=== PATIENT | female | born 1980 | race Caucasian/White ===

== ENCOUNTER → 2016-09-04 | Outpatient (CLI) | payer BC | LOC: BHSO 12:48 | DX: F41.1 Generalized anxiety disorder (principal) | CPT/HCPCS: 90791-AI ==

== ENCOUNTER → 2016-09-28 | Outpatient (CLI) | payer BC | LOC: BHSO 08:57 | DX: F41.1 Generalized anxiety disorder (principal) ==

== ENCOUNTER → 2016-12-02 | Outpatient (CLI) | payer BC | LOC: BHSO 08:15 | DX: F41.1 Generalized anxiety disorder (principal) ==

== ENCOUNTER → 2016-12-28 | Outpatient (CLI) | payer BC | LOC: BHSO 10:08 | DX: F41.1 Generalized anxiety disorder (principal) ==

== ENCOUNTER → 2017-02-10 | Outpatient (CLI) | payer BC | LOC: BHSO 11:37 | DX: F41.0 Panic disorder [episodic paroxysmal anxiety] (principal) ==

== ENCOUNTER → 2017-03-30 | Outpatient (CLI) | payer BC | LOC: BHSO 08:14 | DX: F41.1 Generalized anxiety disorder (principal) ==

== ENCOUNTER 2017-04-19 00:16 | Emergency (ER) | payer BC ==
[~2017-04-19] VITALS: Ht 170.2 cm; Wt 88.6 kg
[2017-04-19 00:16] VITALS: TEMP 97.5
[2017-04-19] MEDS ORDERED: SINGULAIR 110 MG/TAB PO (01:06)
[2017-04-19] MEDS ORDERED: ZOLOFT 100MG100 MG PO (01:08)
[2017-04-19] MEDS ORDERED: GLUCOPHAGE1000 MG PO (01:09)
[2017-04-19] MEDS ORDERED: XANAX .25M0.25 MG/TA PO (01:10)
[2017-04-19 01:12] LABS: COLLECTION METHOD CLEAN CATCH
[2017-04-19 01:12] LABS: BASO # 0.1 (0.0-0.2); BASO % 0.8 % (0.0-2.0); EOS # 0.3 (0.0-0.7); EOS % 2.3 % (0-4.0); GRAN # 7.8 (1.4-6.5); GRAN % 70.8 % (42.2-75.2); HEMATOCRIT 40.9 % (37.0-47.0); HEMOGLOBIN 13.8 g/dl (12.5-16.0); LYMPH # 2.2 (1.2-3.4); LYMPH % 19.7 % (20.0-51.0); MEAN CELL VOLUME 86 fl (80.0-100.0); MEAN CORPUSCULAR HEMOGLOBIN 29 pg (27.0-31.0); MEAN CORPUSCULAR HGB CONC 34 g/dl (33.0-37.0); MEAN PLATELET VOLUME 10.2 fl (7.4-10.4); MONO # 0.7 (0.1-0.6); MONO % 6.1 % (1.7-9.3); PLATELET COUNT 267 K/mm3 (130-400); RED BLOOD COUNT 4.76 M/mm3 (4.10-5.30)
[2017-04-19 01:19] LABS: PH 8 (5-8); SQUAMOUS EPITHELIAL 0-2 /hpf; URINE APPEARANCE Clear; URINE BACTERIA None Seen /hpf; URINE BILIRUBIN Negative (NEGATIVE); URINE BLOOD Negative (NEGATIVE); URINE COLOR Straw; URINE GLUCOSE Negative (NEGATIVE); URINE KETONE Negative (NEGATIVE); URINE LEUKOCYTE ESTERASE Negative (NEGATIVE); URINE PROTEIN(semi-quant) Negative (NEGATIVE); URINE RBC 0-2 /hpf; URINE UROBILINOGEN Negative (NEGATIVE); URINE WBC 0-2 /hpf
[2017-04-19 01:23] LABS: ADJUSTED CALCIUM 9.6 mg/dL (8.4-10.2); ALBUMIN 4.6 gm/dL (3.5-5.0); BILIRUBIN,TOTAL 0.5 mg/dL (0.0-1.0); CALCIUM 10.1 mg/dL (8.4-10.2); CREATININE, serum 0.6 mg/dL (0.52-1.25); POTASSIUM 3.8 mmol/L (3.4-5.0); TOTAL PROTEIN 7.2 gm/dL (6.4-8.2)
[2017-04-19 01:39] LABS: PROLACTIN 20.3 ng/mL (3.0-18.6)
[2017-04-19 01:52] VITALS: BP 120/75; PULSE 76
== END 2017-04-19 01:52 | disposition home or self-care (01) ==
LOC: COL.ER 00:16
PROVIDERS: Emergency Medicine
DX: R56.9 Unspecified convulsions (principal); Z79.84 Long term (current) use of oral hypoglycemic drugs
CPT/HCPCS: J7030

== ENCOUNTER → 2017-06-29 | Outpatient (CLI) | payer BC ==
[~2017-06-29] MED LIST: GLUCOPHAGE1000 MG PO; SINGULAIR 110 MG/TAB PO; XANAX .25M0.25 MG/TA PO; ZOLOFT 100MG100 MG PO
== END ==
LOC: BHSO 15:36
DX: F41.1 Generalized anxiety disorder (principal)
CPT/HCPCS: G0463

== ENCOUNTER → 2017-08-10 | Outpatient (CLI) | payer BC | LOC: BHSO 09:36 | DX: F41.1 Generalized anxiety disorder (principal) | CPT/HCPCS: G0463 ==

== ENCOUNTER 2017-09-18 09:29 | Emergency (ER) | payer BC ==
[2017-09-18 09:33] VITALS: TEMP 98.2
[2017-09-18] MEDS ORDERED: LAMICTAL150 MG PO (09:44)
[2017-09-18] MEDS ORDERED: NORCO 325 MG-51 TAB PO (11:47)
[2017-09-18 11:59] VITALS: BP 122/79; PULSE 78
== END 2017-09-18 12:04 | disposition home or self-care (01) ==
LOC: COL.ER 09:29
DX: S09.90XA Unspecified injury of head, initial encounter (principal); S01.81XA Laceration without foreign body of other part of head, initial encounter; Z23 Encounter for immunization; Z79.84 Long term (current) use of oral hypoglycemic drugs; W01.198A Fall on same level from slipping, tripping and stumbling with subsequent striking against other object, initial encounter

== ENCOUNTER → 2017-11-19 | Outpatient (CLI) | payer BC ==
[~2017-11-19] MED LIST changes: +LAMICTAL150 MG PO; +NORCO 325 MG-51 TAB PO
== END ==
LOC: BHSO 08:13
DX: F41.1 Generalized anxiety disorder (principal)
CPT/HCPCS: G0463

== ENCOUNTER → 2018-05-02 | Outpatient (CLI) | payer BC ==
[~2018-05-02] MED LIST changes: +DIAMOX 250MG250 MG PO; +FOLIC ACID 11 MG/TA1 PO; +LAMICTAL XR200 MG PO
== END ==
LOC: BHSO 08:39
DX: F41.1 Generalized anxiety disorder (principal)
CPT/HCPCS: G0463

== ENCOUNTER → 2018-11-01 | Outpatient (CLI) | payer BC | LOC: BHSO 08:13 | DX: F31.81 Bipolar II disorder (principal) | CPT/HCPCS: G0463 ==

== ENCOUNTER → 2019-12-04 | Outpatient (CLI) | payer BC | LOC: COL.RAD 12:47 | DX: M25.512 Pain in left shoulder (principal) | CPT/HCPCS: J3301; Q9967 ==

== ENCOUNTER → 2020-10-01 | Outpatient (CLI) | payer BC | LOC: MC.RAD 16:11 | DX: Z12.31 Encounter for screening mammogram for malignant neoplasm of breast (principal) ==